=== PATIENT | female | born 1990 ===

== ENCOUNTER 2023-01-30 13:58 | Outpatient (REF) | payer OTHER, MEDICAID, SELFPAY | END 2023-01-30 13:59 | disposition home or self-care (01) | LOC: HO.SH 13:58 | PROVIDERS: PCP Internal Medicine; Visit Provider Internal Medicine | DX: Z01.118 Encounter for examination of ears and hearing with other abnormal findings (principal); H93.293 Other abnormal auditory perceptions, bilateral | CPT/HCPCS: 92557; 92567; 92588; 92700 ==